=== PATIENT | female | born 1990 ===

== ENCOUNTER 2021-02-10 15:15 | Inpatient (IN) | payer OTHER ==
[~2021-02-10] VITALS: Ht 165.1 cm; Wt 130.2 kg
[2021-03-04] MEDS ORDERED: ECOTRIN81 MG PO (00:08)
[2021-03-04] MEDS ORDERED: SYNTHROID75 MCG PO (00:08)
[2021-03-04] MEDS ORDERED: PRENATAL TABLE1 EAC1 PO (00:09)
== END 2021-03-07 16:59 | disposition home or self-care (01) | DRG 788 ==
LOC: OB/GYN 02-28 15:15 → LDR 03-03 20:46 → OB/GYN 03-04 18:53
PROVIDERS: ADMIT Obstetrics & Gynecology; ATTEND Obstetrics & Gynecology
PROC: 3E0P7VZ Introduction of Hormone into Female Reproductive, Via Natural or Artificial Opening (ICD-10-PCS; 2021-03-04)
PROC: 4A1HXFZ Monitoring of Products of Conception, Cardiac Rhythm, External Approach (ICD-10-PCS; 2021-03-04)
PROC: 10D00Z1 Extraction of Products of Conception, Low, Open Approach (ICD-10-PCS; principal; 2021-03-04 21:15)
DX: O61.0 Failed medical induction of labor (principal); O62.1 Secondary uterine inertia; O48.0 Post-term pregnancy; Z3A.40 40 weeks gestation of pregnancy; Z37.0 Single live birth; Z20.822 Contact with and (suspected) exposure to COVID-19